=== PATIENT | male | born 1955 | race Caucasian/White ===

== ENCOUNTER 2017-08-12 18:47 | Inpatient (IN) | payer BC, OTHER ==
[~2017-08-12] VITALS: Ht 170.2 cm; Wt 95.3 kg
--- NOTE | 2017-08-12 19:08 | NUR ---
PT CALLED FROM WAITING ROOM TO ER BED 4
--- NOTE | 2017-08-12 19:15 | NUR ---
PT RECEIVED FROM HOME C/O CHEST PAIN RADIATING TO LEFT SHOULDER X1 WEEK 01/18 PAIN. NO SOB NOTED. FAMILY AT BEDSIDE. A/OX4 VSS NAD
[2017-08-12] MEDS ORDERED: NITROGLYCERIN PACKET 1 GM PACKET ONE (19:22)
[2017-08-12] MEDS ORDERED: ASPIRIN 325 MG TABLET ONE (19:22)
[2017-08-12] MEDS ORDERED: ASPIRIN 325 MG TABLET PO ONE (19:30)
[2017-08-12] MEDS ORDERED: NITROGLYCERIN PACKET 1 GM PACKET TD ONE (19:30)
[2017-08-12 19:34] LABS: BASOPHILS # (AUTO) 0.1 /CMM (0.0-0.2); BASOPHILS % (AUTO) 0.7 % (0.0-2.0); EOSINOPHILS # (AUTO) 0.2 /CMM (0.0-0.7); EOSINOPHILS % (AUTO) 2.3 % (0.0-6.0); HEMATOCRIT 40 % (39-51); HEMOGLOBIN 14.1 g/dL (13.5-17.5); LYMPHOCYTES # (AUTO) 2.8 /CMM (0.8-4.8); LYMPHOCYTES % (AUTO) 26.8 % (20.0-44.0); MEAN CORPUSCULAR HEMOGLOBIN 29 PG (26.0-33.0); MEAN CORPUSCULAR HGB CONC 35 g/dl (31.0-36.0); MEAN CORPUSCULAR VOLUME 84 fL (80-96); MONOCYTES # (AUTO) 0.6 /CMM (0.1-1.30); MONOCYTES % (AUTO) 5.3 % (2.0-12.0); NEUTROPHILS # (AUTO) 6.8 /CMM (1.8-8.9); NEUTROPHILS % (AUTO) 64.9 % (43.0-81.0); PLATELET COUNT (AUTO) 301 /CMM (150-450); RDW COEFFICIENT OF VARIATION 12.9 (11.5-15.0); WHITE BLOOD COUNT (AUTO) 10.5 K/uL (4.3-11.0)
--- NOTE | 2017-08-12 19:35 | NUR ---
RADIOLOGY AT BEDSIDE
[2017-08-12 19:48] LABS: CREATININE 2.8 mg/dL (0.6-1.3)
[2017-08-12 19:52] LABS: INR 0.87 (0.87-1.13)
[2017-08-12 19:54] LABS: ALBUMIN 3.7 g/dL (3.4-5.0); BILIRUBIN,TOTAL 0.2 mg/dL (0.2-1.0); TOTAL PROTEIN, SERUM 7.6 g/dL (6.4-8.2); TROPONIN I 0.35 ng/mL (0.00-0.056)
--- NOTE | 2017-08-12 20:25 | NUR ---
CALLED , LEFT VOICEMAIL
[2017-08-12] MEDS ORDERED: INSU100V10 SQ (20:52)
[2017-08-12] MEDS ORDERED: AMLO10TA2 PO (20:52)
[2017-08-12] MEDS ORDERED: ATOR20TA PO (20:52)
[2017-08-12] MEDS ORDERED: FEBU40TA PO (20:52)
[2017-08-12] MEDS ORDERED: ASPI-1169 PO (20:52)
[2017-08-12] MEDS ORDERED: INSU100V11 SQ (20:52)
[2017-08-12] MEDS ORDERED: CARV25TA2 PO (20:52)
--- NOTE | 2017-08-12 20:54 | NUR ---
CALLED NURSING SUP. FOR TELE BED
--- NOTE | 2017-08-12 21:35 | NUR ---
PT IN STABLE CONDITION. VSS NAD
--- NOTE | 2017-08-12 22:36 | NUR ---
AWAITING BED FOR PT. WILL CONTINUE TO MONITOR
--- NOTE | 2017-08-13 00:13 | NUR ---
REPORT GIVEN TO GU IN 3WEST
[2017-08-13 01:15] VITALS: BP 138/64
--- NOTE | 2017-08-13 01:15 | NUR ---
SPECIAL MACHINE STITCHER NOTES PT ARRIVED ON TO THE UNIT VIA GURNEY. ACCOMPANIED BY . PT HAS A RIGHT AC #18, INTACT AND PATENT. C/C OF LEFT ARM PAIN FOR A WEEK, AND ELEVATED BLOOD PRESSURE. SINCE ARRIVING AT THE ER, THE PT BLOOD PRESSURE IS LOWER THAN AT HOME. PT IS TELE MONITORED SINUS RHYTHM AT A RATE OF 66. ALL PT BELONGINGS ARE ACCOUNTED FOR. NO COMPLAINTS OF PAIN OR DISTRESS AT THIS TIME. PT IS AMBULATORY. PT GAIT IS STEADY. ORIENTED PT TO USE OF CALL LIGHT. SAFETY PRECAUTIONS IN PLACE. BED IN LOW, LOCKED POSITION, X2 SIDE RAILS UP. CALL LIGHT WITHIN REACH. WILL CONTINUE TO MONITOR.
[2017-08-13] MEDS ORDERED: ACETAMINOPHEN 325 MG TABLET PO PRN (02:00)
[2017-08-13] MEDS ORDERED: DEXTROSE 50%-WATER 50 ML DISP.SYRIN IV PRN (02:00)
[2017-08-13] MEDS ORDERED: CLONIDINE HCL 0.1 MG TABLET PO PRN (02:00)
[2017-08-13] MEDS ORDERED: ZOLPIDEM TARTRATE 5 MG TABLET PO PRN (02:00)
[2017-08-13] MEDS ORDERED: ONDANSETRON HCL/PF 4 MG/2 ML VIAL IV PRN (02:00)
[2017-08-13] MEDS ORDERED: NITROGLYCERIN 0.4 MG/TAB BOTTLE SL PRN (02:00)
[2017-08-13 04:07] VITALS: BP 143/69
[2017-08-13 06:51] LABS: BASOPHILS # (AUTO) 0.1 /CMM (0.0-0.2); BASOPHILS % (AUTO) 0.8 % (0.0-2.0); EOSINOPHILS # (AUTO) 0.2 /CMM (0.0-0.7); EOSINOPHILS % (AUTO) 2.5 % (0.0-6.0); HEMATOCRIT 36 % (39-51); HEMOGLOBIN 12.8 g/dL (13.5-17.5); LYMPHOCYTES # (AUTO) 2.3 /CMM (0.8-4.8); LYMPHOCYTES % (AUTO) 27.4 % (20.0-44.0); MEAN CORPUSCULAR HEMOGLOBIN 30 PG (26.0-33.0); MEAN CORPUSCULAR HGB CONC 35 g/dl (31.0-36.0); MEAN CORPUSCULAR VOLUME 85 fL (80-96); MONOCYTES # (AUTO) 0.5 /CMM (0.1-1.30); MONOCYTES % (AUTO) 5.8 % (2.0-12.0); NEUTROPHILS # (AUTO) 5.4 /CMM (1.8-8.9); NEUTROPHILS % (AUTO) 63.5 % (43.0-81.0); PLATELET COUNT (AUTO) 220 /CMM (150-450); RED BLOOD CELL COUNT(AUTO) 4.29 MIL/uL (4.5-6.0); WHITE BLOOD COUNT (AUTO) 8.5 K/uL (4.3-11.0)
[2017-08-13 07:13] LABS: TROPONIN I 0.285 ng/mL (0.00-0.056)
[2017-08-13 07:16] LABS: ALBUMIN 3.2 g/dL (3.4-5.0); BILIRUBIN,TOTAL 0.4 mg/dL (0.2-1.0); CALCIUM, SERUM 8.7 mg/dL (8.5-10.1); CREATININE 2.4 mg/dL (0.6-1.3); POTASSIUM 4.8 mmol/L (3.5-5.1); TOTAL PROTEIN, SERUM 6.7 g/dL (6.4-8.2)
[2017-08-13] MEDS ORDERED: PANTOPRAZOLE 40 MG TABLET.DR PO SCH (07:30)
[2017-08-13] MEDS ORDERED: BLOOD SUGAR DIAGNOSTIC 1 EACH STRIP IN SCH (07:30)
[2017-08-13] MEDS: BLOOD SUGAR DIAGNOSTIC 1 EACH STRIP VI SCH ×4 (07:34→22:27)
--- NOTE | 2017-08-13 07:43 | NUR ---
RN CLOSING NOTES PT RESTING IN BED. WITH AT BEDSIDE. NO COMPLAINTS OF PAIN, SOB, OR DISTRESS OVERNIGHT. PT HAS A RIGHT AC #18, INTACT AND PATENT. PT IS TELE MONITORED SINUS RHYTHM RATE OF 67. PT CURRENTLY NPO PER DR BOOTH. ALL PATIENT NEEDS MED. SAFETY PRECAUTIONS IN PLACE. BED IN LOW, LOCKED POSITION, X2 SIDE RAILS UP. CALL LIGHT WITHIN REACH. WILL ENDORSE TO DAY SHIFT NURSE FOR CONTINUITY OF CARE.
--- NOTE | 2017-08-13 07:47 | NUR ---
RN OPEN NOTES RECEIVED REPORT FROM WAISTBAND SETTER NURSE. PATIENT IS IN BED, AWAKE ALERT AND ORIENTED TO NAME, PLACE AND TIME. AT BEDSIDE. NO SIGNS AND SYMPTOMS OF DISTRESS. DENIED CHEST PAIN. NPO FOR NOW TILL SNOWBOARDER CONSULT. BED IN LOW POSITION, LOCKED AND TWO SIDE RAILS ARE UP. CALL LIGHT WITHIN REACH FOR SAFETY. WILL CONTINUE TO MONITOR AND ASSESS PATIENT THROUGH OUT MY SHIFT
[2017-08-13 08:00] VITALS: BP 124/69
--- NOTE | 2017-08-13 08:21 | NUR ---
DR BOOTH AT BEDSIDE
[2017-08-13] MEDS: ATORVASTATIN 10 MG TABLET PO SCH (09:00)
[2017-08-13] MEDS ORDERED: AMLODIPINE BESYLATE 10 MG TABLET PO SCH (09:00)
[2017-08-13] MEDS ORDERED: ASPIRIN 81 MG TAB.CHEW PO SCH (09:00)
[2017-08-13] MEDS: CARVEDILOL 12.5 MG TABLET PO SCH ×2 (09:07→20:43)
[2017-08-13] MEDS: ALLOPURINOL 100 MG TABLET PO SCH (09:17)
[2017-08-13] MEDS ORDERED: INSULIN DETEMIR 100 UNIT/ML CARTRIDGE SQ SCH (10:00)
[2017-08-13] MEDS ORDERED: REGADENOSON 0.4 MG/5 ML DISP.SYRIN IVP ONE (10:00)
--- NOTE | 2017-08-13 10:38 | NUR ---
PATIENT LEFT THE FLOOR FOR NM STRESS TEST
[2017-08-13] MEDS: *INSULIN REGULAR(HUMULIN R)HUM 100 UNIT/ML VIAL SQ PRN ×2 (12:17→22:36)
--- NOTE | 2017-08-13 12:58 | NUR ---
NM: CARDIAC STRESS TEST WAS COMPLETED. TECH:RB.
[2017-08-13] MEDS ORDERED: ATORVASTATIN 40 MG TABLET PO SCH (15:30)
[2017-08-13] MEDS ORDERED: LISINOPRIL (5MG) 5 MG TABLET PO SCH (15:30)
[2017-08-13 16:00] VITALS: BP 123/70
[2017-08-13] MEDS: INSULIN REGULAR, HUMAN 100 UNIT/ML 3 ML VIAL SQ PRN (17:40)
--- NOTE | 2017-08-13 19:24 | NUR ---
RN CLOSING NOTES PATIENT IS IN BED, WITH HIS EYES CLOSED, EASILY AROUSED FOR LIGHT TOUCH. NO SIGNS AND SYMPTOMS OF DISTRESS. BREATHING IS BILATERALLY EVEN AND UNLABORED. BED IN LOW POSITION, LOCKED AND TWO SIDE RAILS ARE UP. CALL LIGHT WITHIN REACH FOR SAFETY. ALL NURSING CARE ANTICIPATED AND ATTENDED FOR. PATIENT KEPT CLEAN AND DRY. WILL ENDORSE TO UR COORDINATOR NURSE
[2017-08-13 20:00] VITALS: BP 142/70
--- NOTE | 2017-08-13 20:02 | NUR ---
RN OPENING NOTES PT RESTING IN BED. NO COMPLAINTS OF PAIN, SOB, OR DISTRESS. PT HAS A RIGHT AC #18, INTACT AND PATENT. PT TELE MONITORED. SAFETY PRECAUTIONS IN PLACE. BED IN LOW, LOCKED POSITION, X2 SIDE RAILS UP. CALL LIGHT WITHIN REACH. WILL CONTINUE TO MONITOR.
[2017-08-14] VITALS: BP 141/71
[2017-08-14 04:00] VITALS: BP 133/68
[2017-08-14] MEDS: INSULIN REGULAR, HUMAN 100 UNIT/ML 3 ML VIAL SQ PRN ×2 (06:45→12:01)
[2017-08-14] MEDS: BLOOD SUGAR DIAGNOSTIC 1 EACH STRIP VI SCH ×2 (07:36→11:59)
--- NOTE | 2017-08-14 07:38 | NUR ---
RN OPEN NOTES RECEIVED REPORT FROM CARPENTER RAILCAR RN. PATIENT IS IN BED, ALERT AND ORIENTED TO NAME PLACE AND TIME. AT BEDSIDE. NO S/S OF DISTRESS. BED IN LOW POSITION, LOCKED AND TWO SIDE RAILS ARE UP. CALL LIGHT WITHIN REACH FOR SAFETY. WILL CONTINUE TO ASSESS AND MONITOR PATIENT
[2017-08-14 08:00] VITALS: BP 134/58
[2017-08-14 08:49] LABS: CALCIUM, SERUM 9.1 mg/dL (8.5-10.1); CREATININE 2.2 mg/dL (0.6-1.3); POTASSIUM 4.7 mmol/L (3.5-5.1)
[2017-08-14] MEDS: ALLOPURINOL 100 MG TABLET PO SCH (08:51)
[2017-08-14] MEDS: CARVEDILOL 12.5 MG TABLET PO SCH (08:53)
[2017-08-14] MEDS: ATORVASTATIN 10 MG TABLET PO SCH (08:54)
[2017-08-14] MEDS ORDERED: LISINOPRIL (20MG) 20 MG TABLET PO SCH (09:00)
[2017-08-14] MEDS ORDERED: LISINOPRIL (5MG) 5 MG TABLET PO SCH (09:00)
[2017-08-14] MEDS ORDERED: ASPIRIN EC 325 MG TABLET.DR PO SCH (09:00)
[2017-08-14] MEDS ORDERED: AMLODIPINE BESYLATE 10 MG TABLET PO SCH (09:00)
[2017-08-14] MEDS ORDERED: INSULIN DETEMIR 100 UNIT/ML CARTRIDGE SQ SCH (09:00)
[2017-08-14 12:00] VITALS: BP 123/63
--- NOTE | 2017-08-14 14:15 | NUR ---
AWS ARCHITECT NOTES PATIENT DISCHARGE ORDER RECEIVED AND CARRIED OUT. PATIENT IS MOVING TO [facility] FOR A HIGHER LEVEL OF CARE. REPORT GAVE TO PATIENT, PATIENT , AND SECURITY PUBLIC SAFETY OFFICER RNEUSEBIO. NO SIGNS AND SYMPTOMS OF DISTRESS. DENIED CHEST PAIN. ALL PERSONAL BELONGING WITH PATIENT AT TIME OF DISCHARGE. PATIENT SIGNED BOTH BELONGING LIST AND DISCHARGE INSTRUCTION FORMS; BOTH FORMS PLACED IN THE CHART. PATIENT PICKED UP BY AMBULANCE AND TWO metal mine inspector. PATIENT TRANSFERRED TO [facility] SECURITY PUBLIC SAFETY OFFICER. PATIENT SIGNED THE TRANSFERRED PAPERS. ID BAND REMOVED. LEFT FOREARM 20G IV SITE IS INTACT AND PATENT AND STAYED PER SECURITY PUBLIC SAFETY OFFICER RN REQUEST.
[2017-08-14] MEDS ORDERED: ATORVASTATIN 10 MG TABLET PO SCH (22:00)
== END 2017-08-14 14:30 | disposition short-term general hospital (02) | DRG 282 ==
LOC: ER 18:49 → TELE 23:16
PROVIDERS: ADMIT Internal Medicine; ATTEND Internal Medicine
DX: I21.4 Non-ST elevation (NSTEMI) myocardial infarction (principal); E11.22 Type 2 diabetes mellitus with diabetic chronic kidney disease; N18.3 Chronic kidney disease, stage 3 (moderate); E78.5 Hyperlipidemia, unspecified; M10.9 Gout, unspecified; I12.9 Hypertensive chronic kidney disease with stage 1 through stage 4 chronic kidney disease, or unspecified chronic kidney disease; Z79.4 Long term (current) use of insulin
CPT/HCPCS: 36415; 71045; 80048-TC; 80053-TC; 80061-TC; 80076-TC; 82962-TC; 84484-TC; 85025-TC; 85730-TC; 87081-TC; 93307-TC; A4606; A9502; J1815; J2785; Z7610

== ENCOUNTER 2023-02-06 14:05 | Emergency (ER) | payer BC ==
[~2023-02-06] VITALS: Ht 170.2 cm; Wt 87.1 kg
[~2023-02-06 14:05] MED LIST: AMLO-213 PO; ASPI-1169 PO; ATOR20TA PO; CARV25TA2 PO; FEBU40TA PO; INSU100V10 SQ; INSU100V11 SQ
--- NOTE | 2023-02-06 14:50 | NUR ---
DR LOPEZ AT BEDSIDE FOR EVAL.
--- NOTE | 2023-02-06 14:58 | NUR ---
PT C/O OF MASS AT THE BACK FOR 2 DAYS . HAS AN APPNMT TO HIS PRIMARY BUT COULDNT WAIT..
[2023-02-06 15:10] VITALS: BP 130/71; TEMP 98.3
== END 2023-02-06 15:11 | disposition home or self-care (01) ==
LOC: ER 14:16
DX: D17.1 Benign lipomatous neoplasm of skin and subcutaneous tissue of trunk (principal); E11.9 Type 2 diabetes mellitus without complications; Z90.89 Acquired absence of other organs; Z79.4 Long term (current) use of insulin; Z79.82 Long term (current) use of aspirin; Z79.899 Other long term (current) drug therapy